=== PATIENT | female | born 1990 ===

== ENCOUNTER 2021-05-19 09:35 | Inpatient (IN) | payer OTHER ==
[2021-05-19] MEDS ORDERED: LACTATED RINGERS 1,000 ML ONE (10:02)
--- NOTE | 2021-05-19 10:31 | Anesthesia Day of Surgery ---
Anesthesia Day of Surgery - Day of Surgery Patient Examined: Yes Patient H&P Reviewed: Yes Patient is NPO: Yes Beta Blockers: No Cardiac Clearance: No Pulmonary Clearance: No Johnny's Test: Negative
--- NOTE | 2021-05-19 10:34 | Anesthesia Consultation ---
Anesthesia Consult and Med Hx Date of service: 05/19/21 - Airway Anesthetic Teeth Evaluation: Good ROM Head & Neck: Adequate Mental/Hyoid Distance: Adequate Mallampati Class: Class II Intubation Access Assessment: Probably Good - Pulmonary Exam CTA: Yes - Cardiac Exam Cardiac Exam: RRR - Pre-Operative Health Status ASA Pre-Surgery Classification: ASA2 Proposed Anesthetic Plan: Spinal - Pulmonary Hx Smoking: No Hx Asthma: No Hx Respiratory Symptoms: No SOB: Yes COPD: No Home Oxygen Therapy: No Hx Pneumonia: No Hx Sleep Apnea: No - Cardiovascular System Hx Hypertension: No Hx Coronary Artery Disease: No Hx Heart Attack/AMI: No Hx Angina: No Hx Percutaneous Transluminal Coronary Angioplasty (PTCA): No Hx Cardia Arrhythmia: No Hx Pacemaker: No Hx Internal Defibrillator: No Hx Valvular Heart Disease: No Hx Heart Murmur: No Hx Peripheral Vascular Disease: No - Central Nervous System Hx Neuromuscular Disorder: No Hx Seizures: No CVA: No Hx Back Pain: Yes Hx Psychiatric Problems: No - Gastrointestinal Hx Ulcer: No Hx Gastroesophageal Reflux Disease: No - Endocrine Hx Renal Disease: No Hx End Stage Renal Disease: No Hx Cirrhosis: No Hx Liver Disease: No Hx Insulin Dependent Diabetes: No Hx Non-Insulin Dependent Diabetes: No Hx Thyroid Disease: No Hx Hypothyroidism: No Hx Hyperthyroidism: No - Hematic Hx Anemia: No Hx Sickle Cell Disease: No - Other Systems Hx Alcohol Use: No Hx Substance Use: No Hx Cancer: No Hx Obesity: Yes
[2021-05-19] MEDS ORDERED: FAMOTIDINE 20 MG/2 ML INJ IV NR (11:09)
[2021-05-19] MEDS ORDERED: BICITRA ORAL LIQD 30ML PO NR (11:09)
[2021-05-19] MEDS ORDERED: METOCLOPRAMIDE 10 MG/2 ML INJ IV NR (11:09)
[2021-05-19 11:19] LABS: Hematocrit 36.2 % (30.3-42.9); Hemoglobin 11.4 gm/dl (10.1-14.3); Mean Corpuscular HGB Conc 32 % (30-34); Mean Corpuscular Volume 87 fl (79-97); Platelet Count 220 K/mm3 (140-440); Red Blood Count 4.15 M/mm3 (3.65-5.03); Red Cell Distribution Width 14.8 % (13.2-15.2)
--- NOTE | 2021-05-19 11:24 | History and Physical Report ---
History of Present Illness Date of examination: 05/19/21 Date of admission: 05/19/21 09:35 Chief complaint: scheduled primary c/s and permanent sterilization History of present illness: at 39.2wks by LMP c/w U/S with EDC 05/24/21. Pt had care at [facility] and limited care by life cycle. Pt here for scheduled primary section with breech presentation. pt denies LOF, VB, Ctx or headache. labs with A+, neg screen, RPR NR, HIV neg, Hep BsAg neg and Rubella immune; GBS+; chlamydia treated this preg. Pt desires no future fertility and has signed consents for permanent sterilization and she states she made arrangements with this hospital for this procedure to be done with her section. Past History Past Medical History: no pertinent history Past Surgical History: no surgical history PRINT DESIGNER History: chlamydia (treated neg from [facility] records) Social history: no significant social history - Obstetrical History Expected Date of Delivery: 05/24/21 Actual Gestation: 39 Week(s) 2 Day(s) : 4 Hx # Term Pregnancies: 3 Number of Living Children: 3 Medications and Allergies Allergies Allergy/AdvReac Type Severity Reaction Status Date / Time No Known Allergies Allergy Unverified 05/19/21 11:01 Active Meds: Active Medications Citric Acid/Sodium Citrate (Bicitra Oral Liqd 30ml) 30 ml PO ONCE ONE Stop: 05/19/21 11:10 Famotidine (Famotidine 20 Mg/2 Ml Inj) 20 mg IV ONCE ONE Stop: 05/19/21 11:10 Lactated Ringer's (Lactated Ringers) 1,000 mls @ 2,250 mls/hr IV PREOP JOHAN Stop: 05/20/21 11:42 Oxytocin/Sodium Chloride (Pitocin/Ns 30 Unit/500ml) 30 units in 500 mls @ 0 mls/hr IV TITR JOHAN; Protocol Cefazolin Sodium (Ancef/Sterile Water 2 Gm/20 Ml) 2 gm in 20 mls @ 80 mls/hr IV PREOP NR; Protocol Metoclopramide HCl (Metoclopramide 10 Mg/2 Ml Inj) 10 mg IV ONCE ONE Stop: 05/19/21 11:10 Review of Systems All systems: negative (none) - Physical Exam Breasts: Positive: deferred Cardiovascular: Regular rate Lungs: Positive: Normal air movement Genitourinary (Female): Positive: normal perenium Uterus: Positive: enlarged (non-tender gravid and breech by u/s done by me at bedside) Extremities: Positive: normal - Obstetrical FHR: category 1 Uterine Contraction Monitor Mode: External Uterine Contraction Pattern: Absent Results All other labs normal. Assessment and Plan Term IUP at 39.2wks, breech confirmed, desires permanent sterilization;; GBS+ 1. Admit to hospital for primary section and bilateral salpingectomy, consents obtained 2. NICU and anesthesiologist notified 3. All questions encouraged and answered
[2021-05-19] MEDS ORDERED: ceFAZolin/Water 2 GM/20 ML 2 GM/20 ML SYRINGE IV NR (12:00)
[2021-05-19] MEDS ORDERED: LACTATED RINGERS 1,000 ML IV SCH (12:00)
[2021-05-19] MEDS ORDERED: OXYTOCIN DRIP 30 UNITS/500 ML BAG IV SCH ×2 (12:00→16:00)
[2021-05-19] MEDS ORDERED: BUPIVACAINE /DEX-WATER 0.75% (2 ML) AMPULE INFILTRATI ONE (12:34)
[2021-05-19] MEDS ORDERED: PHENYLEPHRINE/NS 1,000 MCG/10 ML SYRINGE (OR USE) IV ONE (12:51)
[2021-05-19] MEDS ORDERED: ONDANSETRON 4 MG/2 ML INJ ONE (12:52)
[2021-05-19] MEDS ORDERED: SODIUM CHLORIDE 0.9% IRR 1,500 ML BOTTLE IR ONE (13:10)
[2021-05-19] MEDS ORDERED: WATER FOR IRRIG STERILE 1,500 ML BOTTLE IR ONE (13:10)
[2021-05-19] MEDS ORDERED: KETOROLAC 30 MG/1 ML INJ ONE (15:07)
[2021-05-19] MEDS ORDERED: BUPIVACAINE/PF (0.25%) 2.5 MG/ML 30 ML VIAL INFILTRATI ONE ×2 (15:15)
[2021-05-19] MEDS ORDERED: dexAMETHasone 20 MG/5 ML VIAL ONE (15:15)
--- NOTE | 2021-05-19 15:23 | Procedure Note ---
OB Delivery Note - Delivery Date of Delivery: 05/19/21 Surgeon: MONIE TEE Estimated blood loss: other (627cc) - Section Preop diagnosis: desires sterilization, breech Postop diagnosis: same (and nuchal cord x2) section procedure: primary low transverse, bilateral tubal ligation (via bilateral salpingectomy) Disposition: floor Complications: none Narrative: Date: 05/19/21 Surgeon: Monie Tee MD Preop Dx: IUP at 39.2wks, breech, desires permanent sterilization Postop Dx: same Procedure : Primary Low Transverse section and bilateral salpingectomy for sterilization Anesthesia: Combined spinal/epidural Intake: 2700cc Output: 400cc clear urine EBL: 627cc After the risks, benefits and alternatives of procedure discussed, patient signed consents and was taken to the operating room. Pt was given spinal/epidural combination anesthesia. After same was adequate, patient was prepped and draped in the usual sterile fashion. Ferrari catheter in place and draining clear urine. Pt was given prophylactic antibiotic per protocol and time out was done Pfannenstiel skin incision was made and taken sharply to the fascia and the incision extended using electrocautery. Superior edge of the fascia was grasped with arminda clamps and the rectus muscle using blunt dissection and also using electrocautery. Lower portion of the fascia also sharply. Rectus muscle in the midline and Peritoneal cavity entered bluntly and extended with good visualization of the bladder. Gaudencio retractor placed. The bladder flap was created sharply using metzenbaum scissors. Lower uterine segment then entered transversely and amniotic sac entered using allys clamps. Uterine incision extended using bandage scissors. was noted to be in complete breech presentation, both feet grasped delivered and followed by the body and then nuchal cords x2 reduced and head delivered without difficulty, was bulb suctioned, cord clamped and baby handed to waiting pediatricians. Placenta then delivered completely and uterine cavity cleared of all clots and debri. The uterus was not exteriorized and closed in 1 layer using 0-monocryl suture in a running locked fashion and then an additional figure of 8 sutures to ends of the uterine incision. Surgicel powder placed Excellent hemostasis noted. Attention was turned to the left adnexa where the left fallopian tube was followed out to it's fimbriated end. The avascular portion of the mesosalpinx was entered using electrocautery and the distal tubal segment excised and both free ends doubly ligated using 0-vicryl. Of note the left tube had a cyst of morgani. In a similar manner the right tube was excised and free ends doubly ligated with excellent hemostasis. The gutters were cleared of clots and debri and anterior peritoneum closed using 3-0 vicryl suture in a continuous fashion. The rectus muscle reapproximated using 0-vicryl suture in a continuous fashion. Rectus fascia closed with 0-vicryl suture in a continuous fashion and the subcutaneous tissue copiously irrigated with normal saline and re-approximated using 3-0 vicryl suture in a continuous fashion. Excellent hemostasis remains. The skin was closed with 4-0 monocryl suture and steristrips placed with pressure dressing. Sponge, lap, instrument and needle counts x3 were normal. Patient tolerated the procedure well and was taken to recovery room stable. Findings: Viable female , APGARS 8/9 and weight 3758g. Normal uterus, left tube with cyst of morgani and right tube normal and both ovaries normal. - A at 1 minute: 8 at 5 minutes: 9 Infant Gender: Female (wt 3758g; clear fluid; breech presentation.)
[2021-05-19] MEDS ORDERED: PROMETHAZINE 25 MG RECT SUPP PR PRN (15:44)
[2021-05-19] MEDS ORDERED: KETOROLAC 30 MG/1 ML INJ IV PRN (15:44)
[2021-05-19] MEDS ORDERED: HYDROCORTISONE 25 MG RECTAL SUPP PR PRN (15:44)
[2021-05-19] MEDS ORDERED: ONDANSETRON 4 MG/2 ML INJ IV PRN (15:44)
[2021-05-19] MEDS ORDERED: SIMETHICONE 80 MG CHEW TAB PO PRN (15:44)
[2021-05-19] MEDS ORDERED: MAGNESIUM HYDROXIDE (MOM) ORAL LIQD UDC PO PRN (15:44)
[2021-05-19] MEDS ORDERED: SENNOSIDES 8.6 MG TAB PO PRN (15:44)
[2021-05-19] MEDS ORDERED: ACETAMINOPHEN 325 MG TAB PO PRN (15:44)
[2021-05-19] MEDS ORDERED: WITCH HAZEL/ GLYCERIN PAD TP PRN (15:44)
[2021-05-19] MEDS ORDERED: NALOXONE 0.4 MG/1 ML INJ IV PRN (15:44)
[2021-05-19] MEDS ORDERED: LANOLIN/ZINC/DIMETHICONE (LANSINOH) 7 GM TP PRN (15:44)
--- NOTE | 2021-05-19 15:58 | Progress Note ---
Spinal Anesthesia Block - Spinal Anesthesia Block Start Time: 12:40 Stop Time: 12:45 Performed by:: DEJAN MEJÍA Procedure: Patient IDed, H&P reviewed, all questions and concerns were answered, and consent was signed. Timeout was performed at bedside. Patient in sitting position. Sterile prep and drape was performed. [3] ml of 1% lidocaine skin wheal at L[3]- L [4]. Needle introducer advanced. 25 gauge spinal needle advanced. Clear, free flowing CSF. negative blood, negative paresthesia. Spinal dose given. All needles removed. Patient tolerated procedure.
--- NOTE | 2021-05-19 16:00 | Progress Note ---
Regional Anesthesia Block - Regional Anesthesia Block Start Time: 15:16 Stop Time: 15:20 Performed By:: DEJAN MEJÍA Procedure: Patient consented for TAP block for post surgical pain management. Patient identified, monitors placed, and time out performed. TAP identified bilaterally via ultrasound. Skin prepped bilaterally with [chlorhexidine] and [22g stimuplex] needle advanced to the TAP. [Marcaine 0.25% 30ml] injected under ultrasound guidance on the [left] side. [Marcaine 0.25% 30ml] injected under ultrasound guidance on the [right] side. Negative aspiration every 5mL, No change in heart rate or rhythm. Patient tolerated the procedure well. No apparent complications seen.
[2021-05-19] MEDS ORDERED: miSOPROStol 200 MCG TAB ONE (16:50)
[2021-05-19] MEDS ORDERED: SODIUM CHLORIDE 0.9% 1000 ML 1,000 ML ONE (18:54)
[2021-05-19] MEDS ORDERED: fentaNYL 100 MCG/2 ML INJ IV ONE (18:58)
[2021-05-19] MEDS ORDERED: fentaNYL 100 MCG/2 ML INJ ONE (18:58)
[2021-05-19] MEDS ORDERED: METHYLERGONOVINE MALEATE 0.2 MG/ML VIAL IM ONE ×2 (19:01→19:40)
--- NOTE | 2021-05-19 19:15 | Event Note ---
Date: 05/19/21 Nurse called me to bedside for increase vag bleed with clots. Bimanual exam done and large amount moderate size removed from lower uterine segment. Recovery nurse gave her cytotec 800mcg already per rectum and therefore I added methergine 0.2mg IM and pt given fentanyl 100mcg IV for comfort while clots manually removed. Vitals wnl. IV bolus 1liter given and pt remains coherent. CBC drawn by me and sent to lab. Nurse to weigh sponge and incontinent blue pads and determine QBL. Urine output 300cc in the past 3hrs and same remains clear. Repeat exam in 1hr show blood loss normal at this time without trickle. Toradol discontinued. Will monitor closely during the night with pad count x8hrs.
[2021-05-19 20:15] LABS: Hemoglobin 11.3 gm/dl (10.1-14.3); Mean Corpuscular HGB Conc 32 % (30-34); Mean Corpuscular Volume 86 fl (79-97); Platelet Count 207 K/mm3 (140-440); Red Blood Count 4.06 M/mm3 (3.65-5.03); Red Cell Distribution Width 14.7 % (13.2-15.2)
[2021-05-19] MEDS: D5W/LACTATED RINGERS 1,000 ML IV SCH (21:37)
[2021-05-19] MEDS: MORPHINE 4 MG/1 ML INJ IV PRN (21:37)
[2021-05-19 21:46] LABS: RBC Morphology Normal; Total Cells Counted 100
--- NOTE | 2021-05-19 22:45 | Post Anesthesia Evaluation ---
- Post Anesthesia Evaluation Patient Participated: Yes Airway Patent: Yes Stable Respiratory Function: Yes Nausea/Vomiting: No Temp > 96.8F: Yes Pain Manageable: Yes Adequeate Hydration: Yes Anesthesia Complications: No Block Receding Appropriately: Yes Patient on Ventilator: No
[2021-05-20] MEDS: MORPHINE 4 MG/1 ML INJ IV PRN (02:13)
[2021-05-20] MEDS ORDERED: miSOPROStol 200 MCG TAB PR ONE (03:00)
[2021-05-20] MEDS: D5W/LACTATED RINGERS 1,000 ML IV SCH (06:09)
[2021-05-20] MEDS: oxyCODONE /ACETAMINOPHEN 5-325MG TAB PO PRN ×2 (06:10→13:29)
[2021-05-20 06:18] LABS: Hematocrit 29.4 % (30.3-42.9); Hemoglobin 9.3 gm/dl (10.1-14.3)
[2021-05-20] MEDS: IBUPROFEN 800 MG TAB PO PRN ×2 (09:44→16:26)
[2021-05-20] MEDS: FERROUS SULFATE 325 MG TAB PO SCH (09:44)
[2021-05-20] MEDS: PRENATAL VIT27-FE FUMARATE-FOLIC ACID VIT TAB PO SCH (09:46)
--- NOTE | 2021-05-20 11:23 | Progress Note ---
Assessment and Plan A: POD #1 Maternal Obesity Asymptomatic Anemia P: Follow Routine PostOp Orders FeSO4 PO as ordered Subjective - Subjective Date of service: 05/20/21 Patient reports: appetite normal, voiding normally, pain well controlled, flatus, ambulating normally : doing well Objective - Vital Signs Latest vital signs: Vital Signs Temp Pulse Resp BP BP Pulse Ox Pulse Ox 05/20/21 08:29 98.1 F 78 18 102/63 96 05/20/21 06:10 18 05/20/21 04:30 98.6 F 76 18 118/79 05/20/21 02:13 20 05/20/21 00:38 98.0 F 74 16 120/72 96 05/19/21 21:37 18 05/19/21 19:43 77 129/80 98 05/19/21 19:23 82 124/76 97 05/19/21 19:08 84 105/73 05/19/21 19:04 83 119/78 98 05/19/21 18:51 87 106/67 05/19/21 16:45 98 05/19/21 16:13 97.8 F 65 16 116/68 99 05/19/21 16:05 66 19 109/72 99 05/19/21 15:50 70 18 113/59 98 05/19/21 15:35 73 16 108/48 98 05/19/21 15:20 67 16 118/57 99 05/19/21 15:15 75 14 111/66 99 05/19/21 15:12 97.6 F 80 14 101/68 99 Intake and Output 05/19/21 05/20/21 05/20/21 22:59 06:59 14:59 Intake Total 200 1240 240 Output Total 150 3201 500 Balance 50 260 Intake: IV 200 1000 D5lr 1,000 ml @ 125 mls/ 1000 hr IV DIRECT JOHAN Rx#: [id number] ceFAZolin 2 GM In NaCl 0. 100 9% 100 ml @ 200 mls/hr IV Q8H JOHAN Rx#:[id number] Oral 240 240 Output: Urine 150 3200 500 Indwelling Catheter 1600 Uretheral (Ferrari) 1600 Void 500 Pad Count 1 Other: Total, Intake Amount 240 240 Total, Output Amount 1600 500 # Voids Void 1 - Exam Breasts: Present: normal Cardiovascular: Present: Regular rate Lungs: Present: Clear to auscultation, Normal air movement Abdomen: Present: normal appearance, soft, normal bowel sounds Uterus: Present: normal, firm, fundal height below umbilicus Extremities: Present: normal Incision: Present: dry, dressed - Labs Labs: Abnormal lab results 05/19/21 05/20/21 Range/Units 20:01 06:03 WBC 13.2 H (4.5-11.0) K/mm3 Hgb 9.3 L (10.1-14.3) gm/dl Hct 29.4 L (30.3-42.9) % Lymphocytes % (Manual) 6.0 L (13.4-35.0) % Seg Neutrophils # Man 12.0 H (1.8-7.7) K/mm3 Lymphocytes # (Manual) 0.8 L (1.2-5.4) K/mm3
[2021-05-21] MEDS: oxyCODONE /ACETAMINOPHEN 5-325MG TAB PO PRN ×3 (00:26→11:50)
--- NOTE | 2021-05-21 09:10 | Progress Note ---
Assessment and Plan POD#2 C/S with anemia, persist vag bleed after voiding 1. Will repeat cbc adn added cmp 3. Will check CT abd/pelvis with persist vag bleed, moist incision; may have hidden small bleeder 4. Routine care Subjective Date of service: 05/21/21 Principal diagnosis: POD#2 c/s with persist vag bleed higher after voiding Interval history: pt states her pain not relieved with meds only down to level 7/10. positive flatus; denies fever or chills. Vag bleed like a period not improving. Objective - Constitutional Vitals: Vital Signs - 12hr 05/21/21 05/21/21 05/21/21 00:00 00:26 01:26 Temperature 98.6 F Pulse Rate 74 Respiratory 16 18 18 Rate Blood Pressure 102/78 [Right] 05/21/21 06:11 Temperature Pulse Rate Respiratory 18 Rate Blood Pressure [Right] General appearance: Present: no acute distress - Respiratory Respiratory effort: normal - Breasts Breasts: deferred - Cardiovascular Rhythm: regular Extremities: No edema - Gastrointestinal General gastrointestinal: Present: soft, non-tender, other (Dressing removed and steristrips in place. Incision moist centrally) - Genitourinary Female genitourinary: other (bright red moderate lochia, that has constant drip with voiding) - Neurologic Neurologic: moves all extremities - Psychiatric Psychiatric: cooperative - Labs CBC & Chem 7: 05/20/21 06:03 Medications & Allergies - Medications Allergies/Adverse Reactions: Allergies No Known Allergies Allergy (Unverified 05/19/21 11:01) Home Medications: Home Medications Medication Instructions Recorded Confirmed Last Taken Type Ibuprofen [Motrin] 800 mg PO Q8HR PRN 21 Days #40 05/19/21 Unknown Rx tablet oxyCODONE /ACETAMINOPHEN [Percocet 1 tab PO Q4HR PRN 21 Days #30 tab 05/19/21 Unknown Rx 5/325] Active Medications: Generic Name Dose Route Start Last Admin Trade Name Freq PRN Reason Stop Dose Admin Acetaminophen 650 mg 05/19/21 15:44 Acetaminophen 325 Mg Tab PO Q4H PRN CP unreliev by NTG /aller Morp Ferrous Sulfate 325 mg 05/20/21 10:00 05/20/21 09:44 Ferrous Sulfate 325 Mg Tab PO 325 mg QDAY JOHAN Administration Hydrocortisone Acetate 25 mg 05/19/21 15:44 Hydrocortisone 25 Mg Rectal Supp NM BID PRN Hemorrhoids Oxytocin/Sodium Chloride 30 units in 500 mls @ 0 mls/hr 05/19/21 12:00 Pitocin/Ns 30 Unit/500ml IV TITR [facility] Protocol As Directed Oxytocin/Sodium Chloride 30 units in 500 mls @ 40 mls/hr 05/19/21 16:00 Pitocin/Ns 30 Unit/500ml IV TITR [facility] Protocol Dextrose/Lactated Ringer's 1,000 mls @ 125 mls/hr 05/19/21 16:00 05/20/21 06:09 D5lr IV 125 mls/hr DIRECT JOHAN Administration Ibuprofen 800 mg 05/19/21 15:44 05/20/21 16:26 Ibuprofen 800 Mg Tab PO 800 mg Q6H PRN Administration Pain, Moderate (4-6) Magnesium Hydroxide 30 ml 05/19/21 15:44 Magnesium Hydroxide (Mom) Oral Liqd Udc PO QHS PRN Constip Unrelieved By Senna Morphine Sulfate 4 mg 05/19/21 15:44 05/20/21 02:13 Morphine 4 Mg/1 Ml Inj IV 4 mg Q4H PRN Administration Pain , Severe (7-10) Multi-Ingredient Ointment 1 applic 05/19/21 15:44 Lanolin/Zinc/Dimethicone (Lansinoh) 7 Gm TP PRN PRN dryness/cracking Multivitamins/Iron/Calcium 1 each 05/20/21 10:00 05/20/21 09:46 Ccd29-Mx Fumarate-Folic Acid Vit Tab PO 1 each QDAY JOHAN Administration Naloxone HCl 0.1 mg 05/19/21 15:44 Naloxone 0.4 Mg/1 Ml Inj IV Q2MIN PRN Res Rate </= 8 or 02 SAT < 92% Ondansetron HCl 4 mg 05/19/21 15:44 Ondansetron 4 Mg/2 Ml Inj IV Q8H PRN Nausea And Vomiting Oxycodone/Acetaminophen 2 tab 05/19/21 15:44 05/21/21 06:11 Oxycodone /Acetaminophen 5-325mg Tab PO 2 tab Q4H PRN Administration Pain, Moderate (4-6) Promethazine HCl 25 mg 05/19/21 15:44 Promethazine 25 Mg Rect Supp NM Q6H PRN N/V IF NPO AND NO IV ACCESS Senna 17.2 mg 05/19/21 15:44 Sennosides 8.6 Mg Tab PO QHS PRN Constipation Simethicone 80 mg 05/19/21 15:44 Simethicone 80 Mg Chew Tab PO Q6H PRN Gas pain Sodium Chloride 10 ml 05/19/21 16:00 Sodium Chloride 0.9% 10 Ml Flush Syringe IV 05/29/21 23:59 PRN NR Witch Deidra/Glycerin 1 each 05/19/21 15:44 Witch Deidra/ Glycerin Pad TP PRN PRN Hemorrhoids/cleansing/soothing
[2021-05-21 11:48] LABS: Alanine Aminotransferase 11 units/L (7-56); Albumin 2.6 g/dL (3.9-5); Basophils % (Auto) 0.3 % (0.0-1.8); Blood Urea Nitrogen 5 mg/dL (7-17); Calcium 8.2 mg/dL (8.4-10.2); Eosinophils % (Auto) 0.6 % (0.0-4.3); Hematocrit 26.3 % (30.3-42.9); Hemoglobin 8.2 gm/dl (10.1-14.3); Hemolysis Index 5; Lymphocytes # (Auto) 1.4 K/mm3 (1.2-5.4); Mean Corpuscular HGB Conc 31 % (30-34); Mean Corpuscular Volume 89 fl (79-97); Monocytes # (Auto) 0.7 K/mm3 (0.0-0.8); Monocytes % (Auto) 10.1 % (0.0-7.3); Platelet Count 197 K/mm3 (140-440); Red Blood Count 2.96 M/mm3 (3.65-5.03); Red Cell Distribution Width 15.1 % (13.2-15.2)
[2021-05-21 11:49] LABS: BUN/Creatinine Ratio 10
[2021-05-21] MEDS: FERROUS SULFATE 325 MG TAB PO SCH (11:49)
[2021-05-21] MEDS: IBUPROFEN 800 MG TAB PO PRN ×2 (11:50→23:45)
[2021-05-21] MEDS: PRENATAL VIT27-FE FUMARATE-FOLIC ACID VIT TAB PO SCH (11:50)
[2021-05-21] MEDS ORDERED: FERROUS SULFATE 325 MG TAB PO SCH ×2 (12:00→16:00)
--- NOTE | 2021-05-21 15:28 | Cat Scan Report ---
CT ABDOMEN AND PELVIS WITH CONTRAST INDICATION / CLINICAL INFORMATION: persist bright red vag bleed, after void, Anemia; 100 ML OMNI 300 . TECHNIQUE: Axial CT images were obtained through the abdomen and pelvis after 100 cc Omnipaque 300 IV contrast. Sagittal and coronal reformatted images. All CT scans at this location are performed using CT dose re duction for ALARA by means of automated exposure control. COMPARISON: None available. FINDINGS: LOWER CHEST: Trace bilateral pleural effusions. The visualized lung parenchyma is well aerated. LIVER: No significant abnormality. GALLBLADDER: No significant abnormality. BILE DUCTS: No significant abnormality. PANCREAS: No significant abnormality. SPLEEN: No significant abnormality. ADRENALS: No significant abnormality. RIGHT KIDNEY and URETER: No significant abnormality. LEFT KIDNEY and URETER: No significant abnormality. STOMACH and SMALL BOWEL: No significant abnormality. COLON: No significant abnormality. APPENDIX: No significant abnormality. PERITONEUM: No free fluid. No free air. No fluid collection. LYMPH NODES: No significant adenopathy. AORTA and ARTERIES: No significant abnormality. IVC and VEINS: No significant abnormality. URINARY BLADDER: There is trace gas in the bladder which may be secondary to instrumentation. No blad jonathan mass or wall abnormality. REPRODUCTIVE ORGANS: The uterus is enlarged measuring up to 19 cm in length. No uterine mass is ident ified. The endometrium is thickened and complex. The endometrium measures up to 2.7 cm in thickness. There is a small amount of gas within the endometrial canal as well as blood products. This could rep resent endometritis. Retained products of conception could be considered in the appropriate clinical scenario. The ovaries are unremarkable. ADDITIONAL FINDINGS: There is a small amount of gas in the anterior pelvic wall soft tissues which ma y be related to recent , correlate with history. SKELETAL SYSTEM: No significant abnormality. IMPRESSION: Enlarged uterus. This may represent a uterus. The endometrium is thickened and complex co ntaining blood products and gas. Endometritis should be considered. Retained products of conception c ould also be considered. Please correlate with the patient's clinical presentation. Signer Name: Johnny Aguillon Jr, MD Signed: 05/21/2021 3:24 PM Workstation Name: [id number]
[2021-05-21] MEDS ORDERED: miSOPROStol 200 MCG TAB PO SCH (16:00)
[2021-05-21] MEDS: AMOXICILLIN/K CLAV 500/125MG TAB PO SCH (20:15)
[2021-05-21] MEDS: ASCORBIC ACID 250 MG TAB PO SCH (20:16)
[2021-05-21] MEDS: miSOPROStol 200 MCG TAB PO SCH (23:45)
[2021-05-22] MEDS: oxyCODONE /ACETAMINOPHEN 5-325MG TAB PO PRN (04:22)
[2021-05-22] MEDS: IBUPROFEN 800 MG TAB PO PRN (06:45)
[2021-05-22] MEDS: miSOPROStol 200 MCG TAB PO SCH ×2 (06:45→13:38)
[2021-05-22 07:01] LABS: Basophils % (Auto) 0.5 % (0.0-1.8); Eosinophils % (Auto) 0.5 % (0.0-4.3); Hematocrit 32.3 % (30.3-42.9); Hemoglobin 10.2 gm/dl (10.1-14.3); Lymphocytes # (Auto) 1.7 K/mm3 (1.2-5.4); Lymphocytes % (Auto) 22.3 % (13.4-35.0); Mean Corpuscular HGB Conc 32 % (30-34); Mean Corpuscular Volume 90 fl (79-97); Monocytes # (Auto) 0.6 K/mm3 (0.0-0.8); Monocytes % (Auto) 7.2 % (0.0-7.3); Platelet Count 253 K/mm3 (140-440); Red Cell Distribution Width 14.9 % (13.2-15.2)
[2021-05-22 08:50] VITALS: BP 120/71
[2021-05-22] MEDS: PRENATAL VIT27-FE FUMARATE-FOLIC ACID VIT TAB PO SCH (09:18)
[2021-05-22] MEDS: FERROUS SULFATE 325 MG TAB PO SCH ×2 (09:18→13:38)
[2021-05-22] MEDS: ASCORBIC ACID 250 MG TAB PO SCH (10:32)
[2021-05-22] MEDS: AMOXICILLIN/K CLAV 500/125MG TAB PO SCH (10:33)
[2021-05-22] MEDS ORDERED: miSOPROStol 200 MCG TAB PO SCH (12:00)
--- NOTE | 2021-05-22 12:09 | Progress Note ---
Assessment and Plan A: /postop day 3 S/P primary LTCS with BTL. Anemia. P: Discharge today OK'd by MD. Discharge patient home. Discussed with patient /postop discharge instructions and warning signs. Care of incision and activity restrictions discussed with patient. Advised patient to avoid intercourse, lifting, housework, stair climbing, driving, and tub baths (patient may take showers). Advised patient to continue taking her vitamin and iron supplements at home. Advised patient to follow up at [facility] clinic in 1 week. Patient voiced understanding of all instructions. Subjective - Subjective Date of service: 05/22/21 Principal diagnosis: /postop day 3 S/P primary LTCS with BTL Interval history: Patient desires discharge home today. Dr. Powell states it is OK to discharge patient home today. Small amount of lochia. Patient reports: appetite normal, voiding normally, pain well controlled, flatus, ambulating normally, no dizzy ambulation, no nauseated : doing well Objective - Vital Signs Latest vital signs: Vital Signs Temp Pulse Resp BP BP Pulse Ox Pulse Ox 05/22/21 08:05 98.8 F 75 16 120/71 98 05/22/21 00:00 98.6 F 66 16 108/78 05/21/21 19:35 98 05/21/21 15:57 98.1 F 84 16 110/67 94 Intake and Output 05/21/21 05/22/21 05/22/21 23:59 07:59 15:59 Intake Total 540 240 Balance 540 240 Intake: Oral 240 240 Intake, Free Water 300 Other: Total, Intake Amount 240 240 # Voids Void 1 1 - Exam Cardiovascular: Present: Regular rate Lungs: Present: Clear to auscultation Abdomen: Present: normal appearance, soft. Absent: distention, tenderness, guarding, rigidity Uterus: Present: normal, firm, fundal height below umbilicus. Absent: bogginess, tenderness Extremities: Absent: tenderness Incision: Present: dry, intact - Labs Labs: Abnormal lab results 05/22/21 Range/Units 05:49 RBC 3.60 L (3.65-5.03) M/mm3
--- NOTE | 2021-05-22 12:17 | Discharge Summary ---
Providers - Providers Date of Admission: 05/19/21 09:35 Date of discharge: 05/22/21 Attending physician: SAM TEE Primary care physician: SAM TEE Hospitalization Reason for admission: section Delivery: Procedure: primary low transverse Incision: dry, intact Other procedures: tubal ligation complications: other (anemia, supplemented with iron) Discharge diagnosis: IUP at term delivered Hendricks baby: female Pertinent studies: Labs Hospital course: Stable hospital course Condition at discharge: Good Disposition: 01 HOME / SELF CARE / HOMELESS - Discharge Diagnoses (1) Term delivered Status: Acute (2) Anemia Status: Acute Plan - Discharge Medications Prescriptions: Ibuprofen [Motrin] 800 mg PO Q8HR PRN 21 Days #40 tablet PRN Reason: Pain, Moderate (4-6) oxyCODONE /ACETAMINOPHEN [Percocet 5/325] 1 tab PO Q4HR PRN 21 Days #30 tab PRN Reason: Pain , Severe (7-10) - Provider Discharge Summary Activity: routine, no sex for 6 weeks, no heavy lifting 4 weeks, no strenuous exercise Diet: routine Instructions: routine Additional instructions: Continue taking your vitamin daily and your iron supplements every 12 hours at home. Follow up at [facility] clinic in 1 week. Call your doctor immediately for: * Fever > 100.5 * Heavy vaginal bleeding ( >1 pad per hour) * Severe persistent headache * Shortness of breath * Reddened, hot, painful area to leg or breast * Drainage or odor from incision. * Keep incision clean and dry at all times and follow doctor's instructions regarding bathing/showering - Follow up plan Follow up: PRIMARY CARE, [Referring] - 7 Days
== END 2021-05-22 15:00 | disposition home or self-care (01) | DRG 785 ==
LOC: APU 09:35 → OB 16:33
PROVIDERS: ADMIT Obstetrics & Gynecology; ATTEND Obstetrics & Gynecology
PROC: 10D00Z1 Extraction of Products of Conception, Low, Open Approach (ICD-10-PCS; principal; 2021-05-19)
PROC: 0UB70ZZ Excision of Bilateral Fallopian Tubes, Open Approach (ICD-10-PCS; 2021-05-19)
PROC: 3E0T3BZ Introduction of Anesthetic Agent into Peripheral Nerves and Plexi, Percutaneous Approach (ICD-10-PCS; 2021-05-19)
DX: O32.1XX0 Maternal care for breech presentation, not applicable or unspecified (principal); Z37.0 Single live birth; Z3A.39 39 weeks gestation of pregnancy; O99.824 Streptococcus B carrier state complicating childbirth; O69.81X0 Labor and delivery complicated by cord around neck, without compression, not applicable or unspecified; O99.214 Obesity complicating childbirth; O90.81 Anemia of the puerperium
CPT/HCPCS: 36415; 74177; 80053; 85007; 85014; 85018; 85025; 85027; 86592; 86850; 86900; 86901; 88302; G0378; J0630; J3490; J7060; J7121; J0690; J1100; J1885; J2210; J2270; J2370; J2405; J3010; Q9967; U0003